=== PATIENT | male | born 1985 | race Caucasian/White ===

== ENCOUNTER 2018-01-16 16:50 | Emergency (ER) | payer SELFPAY ==
[~2018-01-16] VITALS: Ht 175.3 cm; Wt 134.1 kg
[2018-01-16 16:55] VITALS: Ht 175.3 cm; Wt 134.1 kg
[2018-01-16] MEDS ORDERED: ADVAIR HFA 230-12 GM INH (16:57)
[2018-01-16] MEDS ORDERED: ZPAK PO (19:31)
[2018-01-16] MEDS ORDERED: CLARITIN 10 MG10 MG PO (19:31)
[2018-01-16 20:13] VITALS: BP 147/94
== END 2018-01-16 20:13 | disposition home or self-care (01) ==
LOC: D.ER 16:50
DX: J06.9 Acute upper respiratory infection, unspecified (principal); R09.89 Other specified symptoms and signs involving the circulatory and respiratory systems; R51 Headache; M79.10 Myalgia, unspecified site

== ENCOUNTER 2018-03-02 17:41 | Emergency (ER) | payer SELFPAY ==
[~2018-03-02] VITALS: Ht 175.3 cm; Wt 162.3 kg
[~2018-03-02 17:41] MED LIST: ADVAIR HFA 230-12 GM INH; CLARITIN 10 MG10 MG PO; ZPAK PO
[2018-03-02 17:59] VITALS: Ht 175.3 cm; Wt 162.3 kg
[2018-03-02] MEDS ORDERED: ACETAMINOPHEN500 M1 PO (18:13)
[2018-03-02] MEDS ORDERED: CYCLOBENZAPRINE10 MG PO (18:13)
[2018-03-02] MEDS ORDERED: IBUPROFEN800 MG PO (18:13)
[2018-03-02 18:45] VITALS: BP 109/65
== END 2018-03-02 18:45 | disposition home or self-care (01) ==
LOC: D.ER 17:41
DX: M43.6 Torticollis (principal); M62.838 Other muscle spasm; M54.2 Cervicalgia; M54.6 Pain in thoracic spine

== ENCOUNTER 2018-04-06 15:31 | Emergency (ER) | payer SELFPAY ==
[~2018-04-06] VITALS: Ht 175.3 cm; Wt 162.3 kg
[~2018-04-06 15:31] MED LIST changes: +ACETAMINOPHEN500 M1 PO; +CYCLOBENZAPRINE10 MG PO; +IBUPROFEN800 MG PO
[2018-04-06 15:56] VITALS: Ht 175.3 cm; Wt 162.3 kg
[2018-04-06] MEDS ORDERED: COMPAZINE5 MG PO (16:45)
[2018-04-06 17:02] VITALS: BP 147/86
== END 2018-04-06 17:03 | disposition home or self-care (01) ==
LOC: D.ER 15:31
DX: A08.4 Viral intestinal infection, unspecified (principal)

== ENCOUNTER 2018-04-19 15:56 | Emergency (ER) | payer SELFPAY ==
[~2018-04-19] VITALS: Ht 175.3 cm; Wt 136.4 kg
[~2018-04-19 15:56] MED LIST changes: +COMPAZINE5 MG PO
[2018-04-19 16:07] VITALS: Ht 175.3 cm; Wt 136.4 kg
[2018-04-19 16:27] LABS: BASOPHILS 0.5 % (0-2); HEMATOCRIT 41.5 % (42.0-54.0); HEMOGLOBIN 14.3 g/dL (13.5-17.5); IMMATURE GRANULOCYTES 0.2 % (0-5); LYMPHOCYTES 25.6 % (15-50); MCH 29.5 pg (26.0-34.0); MCHC 34.5 g/dL (31.0-37.0); MCV 85.7 fL (80.0-100.0); MEAN PLATELET VOLUME 10.2 fL (7.4-10.4); MONOCYTES 5.8 % (2-11); NEUTROPHILS 58.9 % (40-80); PLATELET COUNT 279 10x3/uL (130-400); RBC 4.84 10x6/uL (4.20-6.10); RDW 13.6 % (11.5-14.5); WBC 11.8 10x3/uL (4.8-10.8)
[2018-04-19 16:43] LABS: ALBUMIN 3.1 g/dL (3.4-5.0); ALKALINE PHOSPHATASE 87 U/L (46-116); ALT (SGPT) 34 U/L (10-68); BILIRUBIN - TOTAL 0.21 mg/dL (0.2-1.3); CALC OSMOLALITY 282 mosm/kg (275-300); CALCIUM 8.3 mg/dL (8.5-10.1); CARBON DIOXIDE 23.4 mmol/L (21.0-32.0); CHLORIDE - SERUM 105 mmol/L (98-107); CREATININE - SERUM 0.9 mg/dL (0.6-1.3); GLUCOSE 110 mg/dL (74-106); POTASSIUM - SERUM 3.6 mmol/L (3.5-5.1); PROTEIN - SERUM 7.3 g/dL (6.4-8.2); SODIUM 141 mmol/L (136-145); UREA NITROGEN 14 mg/dL (7-18); eGFR NON AFRICAN AMERICAN > 90 mL/min (90-120)
[2018-04-19] MEDS ORDERED: ANTIVERT12.5 MG PO (17:46)
[2018-04-19 18:21] VITALS: BP 127/51
== END 2018-04-19 18:21 | disposition home or self-care (01) ==
LOC: D.ER 15:56
PROVIDERS: Family Medicine
DX: R42 Dizziness and giddiness (principal)

== ENCOUNTER 2018-04-23 18:46 | Emergency (ER) | payer SELFPAY ==
[~2018-04-23] VITALS: Ht 175.3 cm; Wt 136.4 kg
[~2018-04-23 18:46] MED LIST changes: +ANTIVERT12.5 MG PO
[2018-04-23 19:05] VITALS: Ht 175.3 cm; Wt 136.4 kg
[2018-04-23] MEDS ORDERED: TORADOL10 MG PO (22:19)
[2018-04-23] MEDS ORDERED: PENICILLIN V P500 MG PO (22:19)
[2018-04-23 23:06] VITALS: BP 138/72
== END 2018-04-23 23:04 | disposition home or self-care (01) ==
LOC: D.ER 18:46
DX: S02.5XXA Fracture of tooth (traumatic), initial encounter for closed fracture (principal); X58.XXXA Exposure to other specified factors, initial encounter; Y93.89 Activity, other specified; Y92.019 Unspecified place in single-family (private) house as the place of occurrence of the external cause; K02.9 Dental caries, unspecified; F17.200 Nicotine dependence, unspecified, uncomplicated

== ENCOUNTER 2018-06-11 12:49 | Emergency (ER) | payer SELFPAY ==
[~2018-06-11] VITALS: Ht 175.3 cm; Wt 136.4 kg
[~2018-06-11 12:49] MED LIST changes: +PENICILLIN V P500 MG PO; +TORADOL10 MG PO
[2018-06-11 12:55] VITALS: Ht 175.3 cm; Wt 136.4 kg
[2018-06-11 15:10] LABS: BASOPHILS 0.1 % (0-2); EOSINOPHILS 2.1 % (0-7); HEMATOCRIT 40.8 % (42.0-54.0); IMMATURE GRANULOCYTES 0.1 % (0-5); LYMPHOCYTES 16.6 % (15-50); MCH 29.3 pg (26.0-34.0); MCHC 34.3 g/dL (31.0-37.0); MCV 85.4 fL (80.0-100.0); MEAN PLATELET VOLUME 10.2 fL (7.4-10.4); MONOCYTES 10.1 % (2-11); PLATELET COUNT 245 10x3/uL (130-400); RBC 4.78 10x6/uL (4.20-6.10); RDW 13.2 % (11.5-14.5); WBC 15.5 10x3/uL (4.8-10.8)
[2018-06-11 15:38] LABS: ALBUMIN 2.8 g/dL (3.4-5.0); ALKALINE PHOSPHATASE 103 U/L (46-116); ALT (SGPT) 45 U/L (10-68); BILIRUBIN - TOTAL 0.53 mg/dL (0.2-1.3); CALC OSMOLALITY 271 mosm/kg (275-300); CALCIUM 8.4 mg/dL (8.5-10.1); CARBON DIOXIDE 25.2 mmol/L (21.0-32.0); CHLORIDE - SERUM 102 mmol/L (98-107); CREATININE - SERUM 0.7 mg/dL (0.6-1.3); GLUCOSE 88 mg/dL (74-106); POTASSIUM - SERUM 3.8 mmol/L (3.5-5.1); PROTEIN - SERUM 7.6 g/dL (6.4-8.2); SODIUM 137 mmol/L (136-145); UREA NITROGEN 11 mg/dL (7-18); eGFR NON AFRICAN AMERICAN > 90 mL/min (90-120)
[2018-06-11] MEDS ORDERED: MONODOX100 MG PO (15:56)
[2018-06-11] MEDS ORDERED: ALBUTEROL SULF8.5 GM INH (15:56)
[2018-06-11] MEDS ORDERED: GUAIFENESI100 MG/5 M PO (15:56)
[2018-06-11 16:29] VITALS: BP 117/86
== END 2018-06-11 16:29 | disposition home or self-care (01) ==
LOC: D.ER 12:49
PROVIDERS: Family Medicine
DX: J40 Bronchitis, not specified as acute or chronic (principal); M79.18 Myalgia, other site

== ENCOUNTER → 2018-06-22 | Emergency (ER) | payer SELFPAY ==
[~2018-06-22] VITALS: Ht 175.3 cm; Wt 136.4 kg
[~2018-06-22] MED LIST changes: +ALBUTEROL SULF8.5 GM INH; +GUAIFENESI100 MG/5 M PO; +MEDROL DOSE PACK4 MG PO; +MONODOX100 MG PO
[2018-06-22 15:26] VITALS: BP 136/78; Ht 175.3 cm; Wt 136.4 kg
[2018-06-22 16:22] LABS: BASOPHILS 0.3 % (0-2); EOSINOPHILS 5.5 % (0-7); HEMATOCRIT 40.5 % (42.0-54.0); HEMOGLOBIN 13.8 g/dL (13.5-17.5); IMMATURE GRANULOCYTES 0.2 % (0-5); LYMPHOCYTES 26.2 % (15-50); MCH 29.4 pg (26.0-34.0); MCHC 34.1 g/dL (31.0-37.0); MCV 86.2 fL (80.0-100.0); MONOCYTES 7.2 % (2-11); NEUTROPHILS 60.6 % (40-80); RDW 13.4 % (11.5-14.5); WBC 11.4 10x3/uL (4.8-10.8)
[2018-06-22 16:29] LABS: PLATELET COUNT 314 10x3/uL (130-400)
[2018-06-22 17:01] LABS: INR 1.07 (0.85-1.17); PROTIME 13.4 SECONDS (11.6-15.0)
[2018-06-22 17:02] LABS: D-DIMER-QUANTITATIVE < 0.27 ug/mLFEU (0.20-0.54)
[2018-06-22 17:03] LABS: ALBUMIN 2.9 g/dL (3.4-5.0); ALKALINE PHOSPHATASE 106 U/L (46-116); ALT (SGPT) 38 U/L (10-68); BILIRUBIN - TOTAL 0.34 mg/dL (0.2-1.3); CALC OSMOLALITY 277 mosm/kg (275-300); CALCIUM 8.5 mg/dL (8.5-10.1); CARBON DIOXIDE 27.1 mmol/L (21.0-32.0); CHLORIDE - SERUM 103 mmol/L (98-107); GLUCOSE 102 mg/dL (74-106); POTASSIUM - SERUM 3.7 mmol/L (3.5-5.1); PROTEIN - SERUM 7.7 g/dL (6.4-8.2); SODIUM 140 mmol/L (136-145); UREA NITROGEN 11 mg/dL (7-18); eGFR NON AFRICAN AMERICAN > 90 mL/min (90-120)
[2018-06-22 17:29] LABS: CKMB 0.4 U/L (0.0-3.6); CREATINE KINASE 69 UL (21-232); MAGNESIUM - SERUM 1.9 mg/dL (1.8-2.4)
[2018-06-22 17:31] LABS: TROPONIN-I < 0.017 ng/mL (0.000-0.060)
== END | disposition home or self-care (01) ==
LOC: D.ER 15:25
PROVIDERS: Family Medicine
DX: R07.81 Pleurodynia (principal); Z87.09 Personal history of other diseases of the respiratory system; R05 Cough; R06.02 Shortness of breath

== ENCOUNTER 2018-07-26 21:55 | Emergency (ER) | payer SELFPAY ==
[~2018-07-26] VITALS: Ht 175.3 cm; Wt 136.4 kg
[2018-07-26 22:07] VITALS: Ht 175.3 cm; Wt 136.4 kg
[2018-07-27] MEDS ORDERED: TORADOL10 MG PO (02:28)
[2018-07-27] MEDS ORDERED: CLEOCIN HCL300 MG PO (02:28)
[2018-07-27 03:45] VITALS: BP 143/79
== END 2018-07-27 03:45 | disposition home or self-care (01) ==
LOC: D.ER 21:55
DX: K08.89 Other specified disorders of teeth and supporting structures (principal)

== ENCOUNTER 2018-08-16 16:17 | Emergency (ER) | payer SELFPAY ==
[~2018-08-16] VITALS: Ht 175.3 cm; Wt 136.4 kg
[~2018-08-16 16:17] MED LIST changes: +CLEOCIN HCL300 MG PO
[2018-08-16 16:27] VITALS: BP 150/89; Ht 175.3 cm; Wt 136.4 kg
== END 2018-08-16 18:36 | disposition home or self-care (01) ==
LOC: D.ER 16:17
DX: M25.532 Pain in left wrist (principal); R51 Headache

== ENCOUNTER 2018-09-03 13:42 | Emergency (ER) | payer SELFPAY ==
[~2018-09-03] VITALS: Ht 175.3 cm; Wt 129.5 kg
[2018-09-03 14:11] VITALS: BP 133/82; Ht 175.3 cm; Wt 129.5 kg
== END 2018-09-03 15:50 | disposition left against medical advice (07) ==
LOC: D.ER 13:42
DX: K08.89 Other specified disorders of teeth and supporting structures (principal)

== ENCOUNTER 2018-09-15 10:38 | Emergency (ER) | payer MEDICAID ==
[~2018-09-15] VITALS: Ht 175.3 cm; Wt 136.4 kg
[2018-09-15 10:57] VITALS: Ht 175.3 cm; Wt 136.4 kg
[2018-09-15] MEDS ORDERED: PENICILLIN V P500 MG PO (15:02)
[2018-09-15 16:33] VITALS: BP 142/60
== END 2018-09-15 16:34 | disposition home or self-care (01) ==
LOC: D.ER 10:38
DX: K02.9 Dental caries, unspecified (principal); S02.5XXA Fracture of tooth (traumatic), initial encounter for closed fracture; X58.XXXA Exposure to other specified factors, initial encounter; Y93.89 Activity, other specified; Y92.89 Other specified places as the place of occurrence of the external cause